=== PATIENT | male | born 1995 | race Caucasian/White ===

== ENCOUNTER 2017-11-17 14:06 | Emergency (ER) | payer MEDICARE, OTHER ==
[2017-11-17] MEDS ORDERED: Ondansetron ODT 4 MG TAB ONE (14:35)
[2017-11-17] MEDS ORDERED: Mag-Al Plus 1200 MG/1200 MG/120 MG/30 ML UDCUP ONE (14:37)
[2017-11-17] MEDS ORDERED: Lidocaine Viscous Sol 2% 15 ml UD Cup ONE (14:37)
== END 2017-11-17 16:08 | disposition home or self-care (01) ==
LOC: NAV ERS 14:06
DX: K29.00 Acute gastritis without bleeding (principal); F41.9 Anxiety disorder, unspecified; J45.909 Unspecified asthma, uncomplicated; Z79.899 Other long term (current) drug therapy
CPT/HCPCS: 99283; Q0162

== ENCOUNTER 2018-08-11 09:17 | Emergency (ER) | payer MEDICARE, OTHER ==
[2018-08-11 10:29] LABS: Band 7 % (5-11); Eosinophils 5 % (0-10); Hemoglobin 15.9 g/dL (14.0-18.0); Lymphocytes 16 % (21-51); MDiff Complete? YES; Mean Corpuscular HGB CONC 33.9 g/dL (32.0-36.0); Mean Corpuscular Hemoglobin 29.9 pg (27.0-31.0); Mean Corpuscular Volume 88.1 fL (78.0-98.0); Mean Platelet Volume 8.3 fL (7.4-10.4); Monocytes 13 % (0-10); Neutrophil 53 % (42-75); Platelet Count 174 thou/uL (130-400); Platelet Morphology Comment Appears Adequate; RBC Distribution Width 11.3 % (11.5-14.5); RBC Morphology Normal; Reactive Lymphocytes 5 % (0-10); White Blood Cell (WBC) Count 3.8 thou/uL (4.8-10.8)
[2018-08-11 10:31] LABS: ALT (SGPT) 19 U/L (8-55); AST (SGOT) 29 U/L (5-34); Albumin 4.5 g/dL (3.5-5.0); Alkaline Phosphatase 71 U/L (40-150); Anion Gap 15 mmol/L (10-20); BUN (Urea Nitrogen) 14 mg/dL (8.9-20.6); Bilirubin, Total 0.5 mg/dL (0.2-1.2); Calc. Creatinine Clearance 0 mL/min (70-130); Calcium 9.8 mg/dL (7.8-10.44); Carbon Dioxide 23 mmol/L (22-29); Chloride 107 mmol/L (98-107); Estimated GFR-MDRD Greater than 90; Globulin 2.9 g/dL (2.4-3.5); Glucose 88 mg/dL (70-105); Potassium 3.8 mmol/L (3.5-5.1); Protein, Total 7.4 g/dL (6.0-8.3); Sodium 141 mmol/L (136-145)
== END 2018-08-11 11:00 | disposition home or self-care (01) ==
LOC: NAV ERS 09:17
DX: J10.1 Influenza due to other identified influenza virus with other respiratory manifestations (principal)
CPT/HCPCS: 36415; 80053; 85025; 87081; 87430; 87804; 99283

== ENCOUNTER 2018-09-20 16:28 | Emergency (ER) | payer MEDICARE, MEDICAID ==
[2018-09-20 17:21] LABS: #Basophils 0.1 thou/uL (0.0-0.2); #Eosinphils 0.2 thou/uL (0.0-0.7); #Lymphocytes 1.6 thou/uL (1.20-3.40); #Monocytes 0.9 thou/uL (0.11-0.59); #Neutrophils 3.8 thou/uL (1.40-6.50); %Basophils 1.7 % (0.0-1.0); %Eosinophils 3.4 % (0.0-10.0); %Monocytes 13.3 % (0.0-10.0); %Neutrophils 57.6 % (42.0-75.0); Hemoglobin 15.4 g/dL (14.0-18.0); Mean Corpuscular HGB CONC 32.3 g/dL (32.0-36.0); Mean Corpuscular Hemoglobin 29.5 pg (27.0-31.0); Mean Corpuscular Volume 91.1 fL (78.0-98.0); Mean Platelet Volume 7.7 fL (7.4-10.4); Platelet Count 183 thou/uL (130-400); RBC Distribution Width 12.2 % (11.5-14.5); Red Blood Cell (RBC) Count 5.22 mill/uL (4.70-6.10); White Blood Cell (WBC) Count 6.7 thou/uL (4.8-10.8)
[2018-09-20 17:31] LABS: ALT (SGPT) 21 U/L (8-55); AST (SGOT) 29 U/L (5-34); Albumin 4.8 g/dL (3.5-5.0); Alkaline Phosphatase 80 U/L (40-150); Anion Gap 15 mmol/L (10-20); BUN (Urea Nitrogen) 11 mg/dL (8.9-20.6); Bilirubin, Total 0.4 mg/dL (0.2-1.2); Calc. Creatinine Clearance 0 mL/min (70-130); Calcium 10.3 mg/dL (7.8-10.44); Carbon Dioxide 24 mmol/L (22-29); Chloride 105 mmol/L (98-107); Estimated GFR-MDRD Greater than 90; Globulin 2.6 g/dL (2.4-3.5); Glucose 86 mg/dL (70-105); Potassium 4.7 mmol/L (3.5-5.1); Protein, Total 7.4 g/dL (6.0-8.3); Sodium 139 mmol/L (136-145)
== END 2018-09-20 18:09 | disposition home or self-care (01) ==
LOC: NAV ERS 16:28
DX: R42 Dizziness and giddiness (principal); Z79.899 Other long term (current) drug therapy
CPT/HCPCS: 36416; 80053; 85025; 93005

== ENCOUNTER 2019-06-13 14:33 | Emergency (ER) | payer MEDICARE, MEDICAID ==
[2019-06-13 15:09] LABS: #Basophils 0.1 thou/uL (0.0-0.2); #Lymphocytes 0.9 thou/uL (1.20-3.40); #Monocytes 0.5 thou/uL (0.11-0.59); #Neutrophils 6.8 thou/uL (1.40-6.50); %Basophils 0.9 % (0.0-1.0); %Eosinophils 0.3 % (0.0-10.0); %Lymphocytes 10.9 % (21.0-51.0); %Monocytes 6.3 % (0.0-10.0); %Neutrophils 81.6 % (42.0-75.0); Mean Corpuscular HGB CONC 33.5 g/dL (32.0-36.0); Mean Corpuscular Hemoglobin 30.2 pg (27.0-31.0); Mean Corpuscular Volume 90.3 fL (78.0-98.0); Mean Platelet Volume 8.7 fL (7.4-10.4); Platelet Count 190 thou/uL (130-400); RBC Distribution Width 11.4 % (11.5-14.5); Red Blood Cell (RBC) Count 5.29 mill/uL (4.70-6.10); White Blood Cell (WBC) Count 8.3 thou/uL (4.8-10.8)
[2019-06-13 15:15] LABS: Bilirubin Negative (Negative); Blood, Urine Negative (Negative); Clarity Slightly Cloudy (Clear); Glucose, Urine (Dipstick) Negative (Negative); Leukocyte Negative (Negative); Nitrite Negative (Negative); Protein, Urine (Dipstick) Negative (Neg-Trace)
--- NOTE | 2019-06-13 15:17 | RAD ---
EXAM: Chest 2 views: HISTORY: Chest pain COMPARISON: 09/25/2008 FINDINGS: There is a normal-sized cardiomediastinal silhouette. The patient is status post sternotomy. There is no evidence of consolidation, mass, or pleural effusion. The bones are unremarkable. IMPRESSION: No evidence of acute cardiopulmonary disease
[2019-06-13 15:24] LABS: Amphetamine Not Detected (NotDetected); Barbiturates Screen Not Detected (NotDetected); Benzodiazepine Screen Not Detected (NotDetected); Cocaine Metabolite Screen Not Detected (NotDetected); Medtox Control Line Valid? VALID (VALID); Methadone Not Detected (NotDetected); Methamphetamine Not Detected (NotDetected); Opiate Screen Not Detected (NotDetected); Oxycodone Screen Not Detected (NotDetected); Phencyclidine (PCP) Not Detected (NotDetected); THC/Cannabinoid Screen Not Detected (NotDetected); Tricyclic Screen Not Detected (NotDetected)
[2019-06-13 15:32] LABS: ALT (SGPT) 17 U/L (8-55); AST (SGOT) 20 U/L (5-34); Albumin 5.2 g/dL (3.5-5.0); Alkaline Phosphatase 81 U/L (40-110); Anion Gap 16 mmol/L (10-20); BUN (Urea Nitrogen) 11 mg/dL (8.9-20.6); Bilirubin, Total 0.8 mg/dL (0.2-1.2); Calc. Creatinine Clearance 0 mL/min (70-130); Carbon Dioxide 26 mmol/L (22-29); Chloride 103 mmol/L (98-107); Estimated GFR-MDRD Greater than 90; Globulin 2.5 g/dL (2.4-3.5); Glucose 91 mg/dL (70-105); Protein, Total 7.7 g/dL (6.0-8.3); Sodium 141 mmol/L (136-145)
[2019-06-13 15:33] LABS: Acetaminophen Less than 6.0 mcg/mL (10.0-30.0); Alcohol Less than 10 mg/dL (Less than 10); Lipase 15 U/L (8-78); Salicylate Less than 8.0 mg/dL (15.0-30.0)
== END 2019-06-13 18:48 | disposition home or self-care (01) ==
LOC: NAV ERS 14:33
DX: G47.00 Insomnia, unspecified (principal); R07.9 Chest pain, unspecified; F41.9 Anxiety disorder, unspecified; F32.9 Major depressive disorder, single episode, unspecified; Z79.899 Other long term (current) drug therapy
CPT/HCPCS: 71046; 80053; 80306; 80307; 81003; 83690; 84443; 85025; 93005; 94760

== ENCOUNTER 2019-08-03 09:52 | Emergency (ER) | payer MEDICARE, OTHER ==
[2019-08-03] MEDS ORDERED: Ibuprofen 200 MG TAB ONE (10:40)
== END 2019-08-03 11:34 | disposition home or self-care (01) ==
LOC: NAV ERS 09:52
DX: J11.1 Influenza due to unidentified influenza virus with other respiratory manifestations (principal); J45.909 Unspecified asthma, uncomplicated; Z79.899 Other long term (current) drug therapy
CPT/HCPCS: 87081; 87430; 87804; 99283

== ENCOUNTER 2020-08-16 17:07 | Emergency (ER) | payer MEDICARE, MEDICAID ==
[2020-08-16] MEDS ORDERED: Sodium Chloride 0.9% 1,000 ML ONE (17:56)
[2020-08-16] MEDS ORDERED: Ondansetron PF 4 MG/2 ML Vial ONE (17:56)
[2020-08-16 18:02] LABS: Bilirubin Negative (Negative); Blood, Urine Negative (Negative); Clarity Clear (Clear); Glucose, Urine (Dipstick) Negative (Negative); Ketone, Urine Negative (Negative); Leukocyte Negative (Negative); Nitrite Negative (Negative); Protein, Urine (Dipstick) Negative (Neg-Trace); Urobilinogen 0.2 mg/dL (Less than 2)
[2020-08-16 18:06] LABS: #Basophils 0.1 thou/uL (0.0-0.2); #Eosinphils 0.1 thou/uL (0.0-0.7); #Lymphocytes 1.5 thou/uL (1.20-3.40); #Monocytes 0.6 thou/uL (0.11-0.59); #Neutrophils 6.1 thou/uL (1.40-6.50); %Basophils 1.5 % (0.0-1.0); %Eosinophils 0.7 % (0.0-10.0); %Lymphocytes 17.6 % (21.0-51.0); %Neutrophils 73.2 % (42.0-75.0); Hemoglobin 16.7 g/dL (14.0-18.0); Mean Corpuscular HGB CONC 33.1 g/dL (32.0-36.0); Mean Corpuscular Hemoglobin 30.4 pg (27.0-31.0); Mean Corpuscular Volume 91.8 fL (78.0-98.0); Mean Platelet Volume 7.9 fL (7.4-10.4); Platelet Count 219 thou/uL (130-400); RBC Distribution Width 11.8 % (11.5-14.5); Red Blood Cell (RBC) Count 5.51 mill/uL (4.70-6.10); White Blood Cell (WBC) Count 8.3 thou/uL (4.8-10.8)
[2020-08-16 18:08] LABS: Specific Gravity, Urine 1.025 (1.002-1.036)
[2020-08-16 18:20] LABS: ALT (SGPT) 14 U/L (8-55); AST (SGOT) 18 U/L (5-34); Albumin 4.9 g/dL (3.5-5.0); Alkaline Phosphatase 79 U/L (40-110); Anion Gap 14 mmol/L (10-20); BUN (Urea Nitrogen) 10 mg/dL (8.9-20.6); CK (CPK) 166 U/L (30-200); Calc. Creatinine Clearance 0 mL/min (70-130); Calcium 10.1 mg/dL (7.8-10.44); Carbon Dioxide 28 mmol/L (22-29); Chloride 102 mmol/L (98-107); Globulin 2.6 g/dL (2.4-3.5); Glucose 114 mg/dL (70-105); Lipase 21 U/L (8-78); Potassium 4.3 mmol/L (3.5-5.1); Protein, Total 7.5 g/dL (6.0-8.3); Sodium 140 mmol/L (136-145)
== END 2020-08-16 18:47 | disposition home or self-care (01) ==
LOC: NAV ERS 17:07
DX: R11.2 Nausea with vomiting, unspecified (principal); J45.909 Unspecified asthma, uncomplicated
CPT/HCPCS: 80053; 81003; 82550; 83690; 85025; 96374; J2405; J7050

== ENCOUNTER 2020-08-18 16:27 | Emergency (ER) | payer MEDICARE, MEDICAID | END 2020-08-18 17:00 | disposition home or self-care (01) | LOC: NAV ERS 16:27 | DX: S30.812A Abrasion of penis, initial encounter (principal); J45.909 Unspecified asthma, uncomplicated; Y04.0XXA Assault by unarmed brawl or fight, initial encounter | CPT/HCPCS: 99283 ==

== ENCOUNTER 2020-09-12 17:30 | Emergency (ER) | payer MEDICARE, MEDICAID ==
[2020-09-12 18:43] LABS: Bilirubin Negative (Negative); Blood, Urine Negative (Negative); Clarity Clear (Clear); Glucose, Urine (Dipstick) Negative (Negative); Ketone, Urine Negative (Negative); Leukocyte Negative (Negative); Nitrite Negative (Negative); Protein, Urine (Dipstick) Negative (Neg-Trace)
[2020-09-14 22:21] LABS: Chlam.trachomatis by PCR,Urine Not Detected (NotDetected)
== END 2020-09-12 18:45 | disposition short-term general hospital (02) ==
LOC: NAV ERS 17:30
DX: N50.811 Right testicular pain (principal); J45.909 Unspecified asthma, uncomplicated; Z79.899 Other long term (current) drug therapy
CPT/HCPCS: 81003; 87491; 87591; 99284

== ENCOUNTER 2020-10-30 11:27 | Emergency (ER) | payer MEDICARE, MEDICAID ==
[2020-10-30 12:20] LABS: Alcohol Less than 10 mg/dL (Less than 10); Salicylate Less than 8.0 mg/dL (15.0-30.0)
== END 2020-10-30 17:33 | disposition home or self-care (01) ==
LOC: NAV ERS 11:27
DX: T45.0X1A Poisoning by antiallergic and antiemetic drugs, accidental (unintentional), initial encounter (principal)
CPT/HCPCS: 80307; 93005

== ENCOUNTER 2021-02-02 14:05 | Emergency (ER) | payer MEDICARE, MEDICAID | END 2021-02-02 14:38 | disposition home or self-care (01) | LOC: NAV ERS 14:05 | DX: R36.1 Hematospermia (principal) | CPT/HCPCS: 99283 ==

== ENCOUNTER 2021-03-17 16:07 | Emergency (ER) | payer MEDICARE, MEDICAID ==
[2021-03-17 16:48] LABS: #Basophils 0.1 thou/uL (0.0-0.2); #Eosinphils 0.1 thou/uL (0.0-0.7); #Lymphocytes 1.3 thou/uL (1.20-3.40); #Neutrophils 10.5 thou/uL (1.40-6.50); %Basophils 0.7 % (0.0-1.0); %Eosinophils 0.8 % (0.0-10.0); %Lymphocytes 9.8 % (21.0-51.0); %Monocytes 7.6 % (0.0-10.0); %Neutrophils 81.1 % (42.0-75.0); Hemoglobin 17.7 g/dL (14.0-18.0); Mean Corpuscular HGB CONC 33.5 g/dL (32.0-36.0); Mean Corpuscular Hemoglobin 30.8 pg (27.0-31.0); Mean Corpuscular Volume 91.9 fL (78.0-98.0); Mean Platelet Volume 8.6 fL (7.4-10.4); Platelet Count 249 thou/uL (130-400); RBC Distribution Width 11.4 % (11.5-14.5); Red Blood Cell (RBC) Count 5.74 mill/uL (4.70-6.10)
[2021-03-17] MEDS ORDERED: Sodium Chloride 0.9% 1,000 ML ONE (16:54)
[2021-03-17] MEDS ORDERED: Ondansetron PF 4 MG/2 ML Vial ONE (16:54)
[2021-03-17 17:03] LABS: ALT (SGPT) 16 U/L (8-55); AST (SGOT) 20 U/L (5-34); Alkaline Phosphatase 97 U/L (40-110); Anion Gap 17 mmol/L (10-20); BUN (Urea Nitrogen) 13 mg/dL (8.9-20.6); Calc. Creatinine Clearance 0 mL/min (70-130); Calcium 10.6 mg/dL (7.8-10.44); Carbon Dioxide 24 mmol/L (22-29); Chloride 104 mmol/L (98-107); Glucose 104 mg/dL (70-105); Lipase 15 U/L (8-78); Potassium 4.1 mmol/L (3.5-5.1); Sodium 141 mmol/L (136-145)
[2021-03-17 19:18] LABS: Bilirubin Small (Negative); Blood, Urine Negative (Negative); Clarity Slightly Cloudy (Clear); Glucose, Urine (Dipstick) Negative (Negative); Ketone, Urine Trace mg/dL (Negative); Leukocyte Negative (Negative); Nitrite Negative (Negative); Protein, Urine (Dipstick) 30 mg/dL (Neg-Trace); Urobilinogen 0.2 mg/dL (Less than 2); pH, Urine 5.5 (5.0-9.0)
[2021-03-17 19:20] LABS: Specific Gravity, Urine 1.034 (1.002-1.036)
[2021-03-17 19:24] LABS: Bacteria/HPF Rare-Few HPF (None Seen); Squamous Epithelial 0-3 HPF (0-3); Transitional Epithelial 0-3 HPF (None Seen); Yeast-Budding Rare HPF (None Seen)
[2021-03-17 19:25] LABS: Mucous/LPF 2+ LPF (<2+)
[2021-03-17] MEDS ORDERED: Ketorolac Tromethamine 30 MG/ML VIAL ONE (20:02)
[2021-03-17] MEDS ORDERED: Mag-Al Plus 1200 MG/1200 MG/120 MG/30 ML UDCUP ONE (20:02)
[2021-03-17] MEDS ORDERED: Lidocaine Viscous Sol 2% 15 ml UD Cup ONE ×2 (20:02→20:10)
== END 2021-03-17 20:15 | disposition home or self-care (01) ==
LOC: NAV ERS 16:07
DX: K52.9 Noninfective gastroenteritis and colitis, unspecified (principal)
CPT/HCPCS: 80053; 81003; 81015; 83605; 83690; 85025; 96374; 96375; J1885; J2405; J7050

== ENCOUNTER 2021-04-25 09:00 | Emergency (ER) | payer MEDICARE, MEDICAID ==
[2021-04-25] MEDS ORDERED: hydrOXYzine 25 MG TAB ONE (09:45)
[2021-04-25 10:35] LABS: #Basophils 0.1 thou/uL (0.0-0.2); #Lymphocytes 1.1 thou/uL (1.20-3.40); #Monocytes 0.7 thou/uL (0.11-0.59); #Neutrophils 5.9 thou/uL (1.40-6.50); %Basophils 1.5 % (0.0-1.0); %Eosinophils 0.5 % (0.0-10.0); %Lymphocytes 13.4 % (21.0-51.0); %Monocytes 9.2 % (0.0-10.0); %Neutrophils 75.3 % (42.0-75.0); Hemoglobin 15.9 g/dL (14.0-18.0); Mean Corpuscular HGB CONC 32.7 g/dL (32.0-36.0); Mean Corpuscular Hemoglobin 30.3 pg (27.0-31.0); Mean Corpuscular Volume 92.9 fL (78.0-98.0); Mean Platelet Volume 8.3 fL (7.4-10.4); Platelet Count 229 thou/uL (130-400); RBC Distribution Width 11.7 % (11.5-14.5); Red Blood Cell (RBC) Count 5.23 mill/uL (4.70-6.10); White Blood Cell (WBC) Count 7.9 thou/uL (4.8-10.8)
[2021-04-25 10:36] LABS: ALT (SGPT) 17 U/L (8-55); AST (SGOT) 28 U/L (5-34); Albumin 4.6 g/dL (3.5-5.0); Alkaline Phosphatase 78 U/L (40-110); Anion Gap 13 mmol/L (10-20); BUN (Urea Nitrogen) 13 mg/dL (8.9-20.6); Bilirubin, Total 1.2 mg/dL (0.2-1.2); CK (CPK) 651 U/L (30-200); Calc. Creatinine Clearance 0 mL/min (70-130); Calcium 9.8 mg/dL (7.8-10.44); Carbon Dioxide 27 mmol/L (22-29); Chloride 102 mmol/L (98-107); Globulin 3.3 g/dL (2.4-3.5); Glucose 92 mg/dL (70-105); Lipase 13 U/L (8-78); Potassium 3.8 mmol/L (3.5-5.1); Protein, Total 7.9 g/dL (6.0-8.3); Sodium 138 mmol/L (136-145)
== END 2021-04-25 10:57 | disposition home or self-care (01) ==
LOC: NAV ERS 09:00
DX: F41.1 Generalized anxiety disorder (principal); R07.9 Chest pain, unspecified; Y04.8XXA Assault by other bodily force, initial encounter
CPT/HCPCS: 36415; 71045; 80053; 82550; 83690; 84484; 85025; 93005

== ENCOUNTER 2021-06-05 09:52 | Emergency (ER) | payer MEDICARE, MEDICAID | END 2021-06-05 10:30 | disposition home or self-care (01) | LOC: NAV ERS 09:52 | DX: K52.9 Noninfective gastroenteritis and colitis, unspecified (principal); J45.909 Unspecified asthma, uncomplicated | CPT/HCPCS: 99283 ==

== ENCOUNTER 2021-06-11 15:51 | Emergency (ER) | payer MEDICARE, MEDICAID | END 2021-06-11 17:43 | disposition home or self-care (01) | LOC: NAV ERS 15:51 | DX: F41.8 Other specified anxiety disorders (principal); J45.909 Unspecified asthma, uncomplicated | CPT/HCPCS: 99283 ==

== ENCOUNTER 2021-06-13 09:31 | Emergency (ER) | payer MEDICARE, MEDICAID | END 2021-06-13 10:10 | disposition home or self-care (01) | LOC: NAV ERS 09:31 | DX: F41.9 Anxiety disorder, unspecified (principal) | CPT/HCPCS: 99283 ==

== ENCOUNTER 2021-06-22 12:50 | Emergency (ER) | payer MEDICARE, MEDICAID ==
[2021-06-23 17:07] LABS: SARS-CoV-2 PCR by NAA Not Detected (NotDetected)
== END 2021-06-22 13:20 | disposition home or self-care (01) ==
LOC: NAV ERS 12:50
DX: J06.9 Acute upper respiratory infection, unspecified (principal); Z20.822 Contact with and (suspected) exposure to COVID-19
CPT/HCPCS: U0003; U0005; 99284

== ENCOUNTER 2021-06-26 14:33 | Emergency (ER) | payer MEDICARE, MEDICAID ==
[2021-06-27 12:01] LABS: SARS-CoV-2 PCR by NAA Not Detected (NotDetected)
== END 2021-06-26 15:11 | disposition home or self-care (01) ==
LOC: NAV ERS 14:33
DX: R50.9 Fever, unspecified (principal); R51.9 Headache, unspecified; Z20.822 Contact with and (suspected) exposure to COVID-19
CPT/HCPCS: 87804 ×2; 99284; U0003; U0005

== ENCOUNTER 2021-07-10 11:43 | Emergency (ER) | payer MEDICARE, MEDICAID ==
[2021-07-10] MEDS ORDERED: Ketorolac Tromethamine 60 MG/2 ML VIAL ONE (13:38)
[2021-07-10] MEDS ORDERED: Prochlorperazine 10 MG/2 ML VIAL ONE (14:41)
[2021-07-10] MEDS ORDERED: diphenhydrAMINE 50 MG/ML VIAL ONE (14:41)
[2021-07-10] MEDS ORDERED: Sodium Chloride 0.9% 0 ML ONE ×2 (14:41→14:45)
== END 2021-07-10 14:57 | disposition home or self-care (01) ==
LOC: NAV ERS 11:43
DX: R51.9 Headache, unspecified (principal)
CPT/HCPCS: 96372; 99283; J0780; J1200; J1885; J7050

== ENCOUNTER 2021-09-06 | Emergency (ER) | payer MEDICARE, MEDICAID | END 2021-09-06 09:28 | disposition home or self-care (01) | DX: R19.7 Diarrhea, unspecified (principal) | CPT/HCPCS: 99283 ==

== ENCOUNTER 2021-09-20 18:49 | Emergency (ER) | payer MEDICARE, MEDICAID | END 2021-09-20 19:15 | disposition home or self-care (01) | LOC: NAV ERS 18:49 | DX: R10.9 Unspecified abdominal pain (principal); G89.29 Other chronic pain; J45.909 Unspecified asthma, uncomplicated; Z79.899 Other long term (current) drug therapy | CPT/HCPCS: 99283 ==

== ENCOUNTER 2021-12-28 13:55 | Emergency (ER) | payer MEDICARE, OTHER | END 2021-12-28 14:43 | disposition home or self-care (01) | LOC: NAV ERS 13:55 | DX: Z20.822 Contact with and (suspected) exposure to COVID-19 (principal) | CPT/HCPCS: 99283; U0003; U0005 ==

== ENCOUNTER 2022-01-04 22:08 | Emergency (ER) | payer MEDICARE, OTHER ==
[2022-01-04] MEDS ORDERED: Ondansetron PF 4 MG/2 ML Vial ONE (22:40)
[2022-01-04] MEDS ORDERED: Sodium Chloride 0.9% 1,000 ML ONE (22:40)
[2022-01-04] MEDS ORDERED: Ketorolac Tromethamine 30 MG/ML VIAL ONE (22:40)
[2022-01-04 22:45] LABS: #Basophils 0.1 thou/uL (0.0-0.2); #Eosinphils 0.1 thou/uL (0.0-0.7); #Lymphocytes 1.1 thou/uL (1.20-3.40); #Monocytes 0.9 thou/uL (0.11-0.59); #Neutrophils 4.4 thou/uL (1.40-6.50); %Basophils 1.3 % (0.0-1.0); %Eosinophils 1.5 % (0.0-10.0); %Lymphocytes 17.2 % (21.0-51.0); %Monocytes 13.1 % (0.0-10.0); %Neutrophils 66.9 % (42.0-75.0); Hemoglobin 15.5 g/dL (14.0-18.0); Mean Corpuscular Hemoglobin 29.3 pg (27.0-31.0); Mean Corpuscular Volume 94.8 fL (78.0-98.0); Platelet Count 223 thou/uL (130-400); RBC Distribution Width 12.2 % (11.5-14.5); Red Blood Cell (RBC) Count 5.27 mill/uL (4.70-6.10); White Blood Cell (WBC) Count 6.5 thou/uL (4.8-10.8)
[2022-01-04 23:00] LABS: ALT (SGPT) 15 U/L (8-55); AST (SGOT) 17 U/L (5-34); Albumin 4.4 g/dL (3.5-5.0); Alkaline Phosphatase 76 U/L (40-110); Anion Gap 14 mmol/L (10-20); BUN (Urea Nitrogen) 10 mg/dL (8.9-20.6); Calc. Creatinine Clearance 0 mL/min (70-130); Calcium 9.7 mg/dL (7.8-10.44); Carbon Dioxide 29 mmol/L (22-29); Chloride 106 mmol/L (98-107); Estimated GFR 92; Globulin 2.8 g/dL (2.4-3.5); Glucose 89 mg/dL (70-105); Potassium 4.2 mmol/L (3.5-5.1); Protein, Total 7.2 g/dL (6.0-8.3); Sodium 145 mmol/L (136-145)
== END 2022-01-04 23:38 | disposition home or self-care (01) ==
LOC: NAV ERS 22:08
DX: B34.9 Viral infection, unspecified (principal); Z20.822 Contact with and (suspected) exposure to COVID-19
CPT/HCPCS: 80053; 85025; 94760; 96361; 96374; 96375; J1885; J2405; J7050; U0003; U0005

== ENCOUNTER 2024-04-12 14:33 | Emergency (ER) | payer MEDICARE, MEDICAID ==
[2024-04-12] MEDS ORDERED: Sodium Chloride 0.9% 1,000 ML ONE (15:29)
[2024-04-12] MEDS ORDERED: Ondansetron PF 4 MG/2 ML Vial ONE (15:29)
[2024-04-12] MEDS ORDERED: Ketorolac Tromethamine 30 MG (1 mL) VIAL ONE (15:43)
[2024-04-12 16:10] LABS: ALT (SGPT) 16 U/L (8-55); AST (SGOT) 20 U/L (5-34); Albumin 4.7 g/dL (3.5-5.0); Alkaline Phosphatase 86 U/L (40-110); Anion Gap 17 mmol/L (10-20); BUN (Urea Nitrogen) 10 mg/dL (8.9-20.6); Bilirubin, Total 1.4 mg/dL (0.2-1.2); CK (CPK) 113 U/L (30-200); Calc. Creatinine Clearance 0 mL/min (70-130); Calcium 9.9 mg/dL (7.8-10.44); Carbon Dioxide 25 mmol/L (22-29); Chloride 101 mmol/L (98-107); Estimated GFR 99; Globulin 3.5 g/dL (2.4-3.5); Glucose 116 mg/dL (70-105); Potassium 3.9 mmol/L (3.5-5.1); Protein, Total 8.2 g/dL (6.0-8.3); Sodium 139 mmol/L (136-145)
[2024-04-12 16:36] LABS: Hematocrit 54.4 % (42.0-52.0); Hemoglobin 17.8 g/dL (14.0-18.0); Mean Corpuscular HGB CONC 32.7 g/dL (32.0-36.0); Mean Corpuscular Hemoglobin 29.5 pg (27.0-31.0); Mean Corpuscular Volume 90.2 fl (78.0-98.0); Mean Platelet Volume 8.2 fL (7.4-10.4); Platelet Count 188 10x3/uL (130-400); RBC Distribution Width 11.5 % (11.5-14.5); Red Blood Cell (RBC) Count 6.03 mill/uL (4.70-6.10); White Blood Cell (WBC) Count 9.6 10x3/uL (4.8-10.8)
[2024-04-12 16:38] LABS: MDiff Complete? YES
[2024-04-12 16:40] LABS: Band 4 % (5-11); Eosinophils 1 % (0-10); Lymphocytes 1 % (21-51); Monocytes 1 % (0-10); Neutrophil 93 % (42-75)
[2024-04-12 16:41] LABS: Platelet Adequacy Comment Appears Adequate; RBC Morph Comment Within Normal Limits; Toxic Granulation SLIGHT
== END 2024-04-12 16:58 | disposition home or self-care (01) ==
LOC: NAV ERS 14:33
DX: B34.9 Viral infection, unspecified (principal); E86.0 Dehydration
CPT/HCPCS: 80053; 82550; 85025; J1885; J2405; J7030; 96361; 96374; 96375